=== PATIENT | female | born 1955 | race Caucasian/White ===

== ENCOUNTER 2016-08-12 15:48 | Emergency (ER) | payer MEDICARE, OTHER ==
--- NOTE | ~2016-08-12 | EKG ---
PATIENT: MARCOS MEZA UNIT #: [id number] Ventricular Rate: 101 BPM Atrial Rate: 101 BPM P-R Interval: 122 ms QRS Duration: 80 ms Q-T Interval: 340 ms QTC Calculation(Bezet): 440 ms P [place]: 43 degrees Calculated R [place]: 82 degrees Calculated T [place]: 57 degrees Diagnosis Line: Sinus tachycardia Diagnosis Line: Otherwise normal ECG Diagnosis Line: When compared with ECG of 28-FEB-2011 17:55, Diagnosis Line: No significant change was found Diagnosis Line: Confirmed by MILIND DELANEY MD ([id number]) on Diagnosis Line: 09/24/2016 7:02:09 AM INTERPRETING MASTER HANKINS
--- NOTE | ~2016-08-12 | CR63 ---
[facility] A Service of [facility] RADIOLOGY TEXT RESULTS PATIENT: MARCOS MEZA LOCATION: SED : 55 UNIT #: [id number] AGE: [address]: Kassi Brannon APRN SEX: F ORDER DR: [id number] [address] [address] [id number] E MR#: [id number] Acc #: [id number] NAME: MARCOS MEZA : 1955 SEX: F STUDY DATE/TIME: 08/12/2016 16:34 UNIT: SED ROOM: STUDY DESCRIPTION: CR Chest 2 View Attending Physician: Kassi Brannon A.P.R.N. Ordering Physician: Kassi Brannon A.P.R.N. Primary Care Physician: Shannan Nava M.D. MEDICAL IMAGING REPORT This report is preliminary unless electronic signature is present. EXAM PA and lateral chest INDICATIONS Cough, congestion for 1 week. COMPARISON 06/21/2013 FINDINGS A PA and lateral view of the chest were obtained. There appear to be lingular and right middle lobe infiltrates which are new from the prior study. The rest of the lungs are clear. The heart size is normal and the bones are normal. IMPRESSION There are bilateral infiltrates in the lingula and right middle lobe which are new from the old study and consistent with pneumonia. Dictated by... Bryan Wild M.D. THIS IS AN ELECTRONICALLY VERIFIED REPORT Bryan Wild M.D. at 08/13/2016 6:04 AM HAYES/wilber TD: 08/12/2016 23:42 JOB #: [id number] MEDICAL IMAGING REPORT
[~2016-08-12 15:48] MED LIST: ACETAMINOPHEN P1 TA5 PO; ADVAIR 250-501 EACH; ADVAIR 250-501 EACH INH; ALAVERT10 MG; AMITIZA24 MCG PO; AMOXICILLIN PO; ANEXSIA 5/325 M1 TA1 PO; ANTIBIOTIC; BACTRIM DS TABL1 TA1 PO; BACTRIM DS TABL1 TA2; BACTRIM DS TABL1 TA2 PO; BACTROBAN15 GM; BENADRYL PO; BENADRYL25 MG PO; BENTYL10 MG; CARAFATE PO; CIPROFLOXACIN500 M1 PO; CLARITIN10 MG PO; CLEOCIN HCL300 M1 PO; CLEOCIN150 M1 PO; CLEOCIN150 MG PO; COLACE PO; DIAZEPAM PO; DICYCLOMINE HCL20 MG PO; FLAGYL PO; FLAGYL250 M1 PO; FLEXERIL PO; IBUPROFEN PO; KEFLEX500 MG PO; LAMISIL250 MG PO; LAXATIVE; LINZESS145 MCG; LODINE XL PO; LOMOTIL TABLET1 TAB PO; LORTAB 10-5001 EACH PO; MACROBID 100 M100 MG PO; MACROBID100 M1; MEDROL PO; METRONIDAZ500 MG/101 PO; MUSCLE RELAXER; NAPROXEN PO; NORCO 5/325 TAB1 TAB PO; OTC ACID REFLUX MED; OYSTER CALCIUM500 MG PO; PERCOCET 51 UDTAB 5/ PO; PHENERGAN12.5 MG PO; PHENERGAN25 MG PO; PRAVACHOL PO; PREDNISONE PO; PRILOSEC PO; PRILOSEC20 M1 PO; PRILOSEC40 MG; PYRIDIUM PO; STOMACH PILL; TRAMADOL HCL50 M1 PO; TRAMADOL HCL50 M2 PO; ULTRAM PO; VISTARIL; VOLTAREN50 MG PO; VOLTAREN75 MG PO; [UNRECOGNIZED DRUG - REMARK] PO
[2016-08-12 16:03] LABS: INFLUENZA A NEG (NEG); INFLUENZA B NEG (NEG)
[2016-08-12 16:19] LABS: BASOPHIL% 0.3 % (0-2.5); EOSINOPHIL# 0.1 X10e3 (0-0.7); EOSINOPHIL% 0.8 % (0.0-7.0); HEMATOCRIT 37.4 % (35.0-45.0); HEMOGLOBIN 12.7 gm/dL (12.0-16.0); LYMPHOCYTE# 0.9 X10e3 (1.0-3.5); LYMPHOCYTE% 8.9 % (17.0-45.0); MEAN CELL VOLUME 95.6 FL (83-96); MEAN CORPUSCULAR HEMOGLOBIN 32.3 PG (28-34); MEAN CORPUSCULAR HGB CONC 33.8 g/dL (30-36); MEAN PLATELET VOLUME 8.2 FL (6.5-11.5); MONOCYTE# 0.6 X10e3 (0-1.0); MONOCYTE% 6.2 % (3.0-12.0); NEUTROPHIL# 8.5 X10e3 (1.5-7.1); NEUTROPHIL% 83.8 % (40-75); PLATELET COUNT 286 X10e3 (140-420); RED BLOOD COUNT 3.92 X10e (3.90-5.30); WHITE BLOOD COUNT 10.1 X10e3 (4.0-10.5)
[2016-08-12 16:28] LABS: DIFF IND NO
[2016-08-12 16:35] LABS: POC - MYOGLOBIN 79.3 ng/mL (0.0-169.0); POC - TROPONIN <0.05 ng/mL (<=0.05)
[2016-08-12 16:39] LABS: BLOOD UREA NITROGEN 11 mg/dL (9-23); CALCIUM SERUM 9.9 mg/dL (8.4-10.2); CARBON DIOXIDE 31 mmol/L (22-31); CHLORIDE 97 mmol/L (100-111); CREATININE SERUM 0.5 mg/dL (0.6-1.4); GLOM FILT RATE Estimated ABOVE60 mL/min (>60); GLUCOSE FASTING 104 mg/dL (70-110); POTASSIUM 3.3 mmol/L (3.5-5.1); SODIUM 138 mmol/L (135-145)
[2016-08-12] MEDS ORDERED: ZITHROMAX1 G/PKT PO (18:02)
[2016-08-12] MEDS ORDERED: BENZONATATE PO (18:03)
[2016-08-12] MEDS ORDERED: DELTASONE20 MG PO (18:04)
[2016-10-21] MEDS ORDERED: NEXIUM (15:30)
[2016-10-21] MEDS ORDERED: FLEXERIL10 MG (15:30)
[2016-10-21] MEDS ORDERED: TRAMADOL HCL50 M2 PO (22:03)
== END 2016-08-12 18:04 | disposition home or self-care (01) ==
LOC: SED 15:48
PROVIDERS: Nurse Practitioner
DX: J18.9 Pneumonia, unspecified organism (principal); E11.9 Type 2 diabetes mellitus without complications; J44.9 Chronic obstructive pulmonary disease, unspecified; F17.210 Nicotine dependence, cigarettes, uncomplicated; Z88.0 Allergy status to penicillin
CPT/HCPCS: 36415; 71020; 80048; 82553; 82947; 83874; 83880; 84484; 85025; 87651; 87804; 93005; 94640; 96361; 96365; 99284; J0696

== ENCOUNTER 2016-10-15 14:56 | Emergency (ER) | payer MEDICARE, OTHER ==
--- NOTE | ~2016-10-15 | CR4 ---
[facility] A Service of [facility] RADIOLOGY TEXT RESULTS PATIENT: MARCOS MEZA LOCATION: SED : 55 UNIT #: [id number] AGE: [address]: Georgina Shahid MD SEX: F ORDER DR: [id number] [address] [address] [id number] E MR#: [id number] Acc #: [id number] NAME: MARCOS MEZA : 1955 SEX: F STUDY DATE/TIME: 10/15/2016 15:51 UNIT: SED ROOM: STUDY DESCRIPTION: CR Abdomen Flat Upright or Dec Attending Physician: Georgina Shahid M.D. Ordering Physician: Georgina Shahid M.D. Primary Care Physician: Shannan Nava M.D. MEDICAL IMAGING REPORT This report is preliminary unless electronic signature is present. EXAM Flat and upright abdomen. HISTORY Abdominal pain and constipation. Symptoms have been present for the past 4 days. TECHNIQUE Flat and upright views of the abdomen were obtained. FINDINGS Lumbar scoliosis is noted convex to the right. There is moderately increased stool in the rectosigmoid. The small bowel pattern is normal. No free air is seen on the upright view. No suspicious calcifications or masses. IMPRESSION Increased stool in the rectosigmoid. Otherwise, negative. STAT * RESULT Dictated by... Gordy Iqbal M.D. THIS IS AN ELECTRONICALLY VERIFIED REPORT Gordy Iqbal M.D. at 10/15/2016 6:47 PM JOSLYN/zay TD: 10/15/2016 16:22 JOB #: [id number] [facility] A Service of [facility] RADIOLOGY TEXT RESULTS PATIENT: MARCOS MEZA LOCATION: SED : 55 UNIT #: [id number] AGE: [address]: Georgina Shahid MD SEX: F ORDER DR: MEDICAL IMAGING REPORT Page 1 of 1
[~2016-10-15 14:56] MED LIST changes: +BENZONATATE PO; +DELTASONE20 MG PO; +ZITHROMAX1 G/PKT PO
[2016-10-15] MEDS ORDERED: MIRAPEX (15:18)
[2016-10-15 16:00] LABS: URINE SOURCE CLEAN CATCH
[2016-10-15 16:02] LABS: URINE APPEARANCE CLEAR; URINE BILIRUBIN NEG (NEG); URINE BLOOD 2+ (NEG); URINE COLOR YELLOW; URINE GLUCOSE NEG (NORM); URINE KETONE NEG (NEG); URINE LEUKOCYTE ESTERASE NEG (NEG); URINE NITRATE NEG (NEG); URINE PH 5.5 (5-8); URINE PROTEIN TRACE (NEG); URINE SPECIFIC GRAVITY 1.025 (1.003-1.035); URINE UROBILINOGEN 0.2 MG/DL (NORM)
[2016-10-15 16:10] LABS: MICRO INDICATED? YES
[2016-10-15 16:25] LABS: CULTURE INDICATED? NO; URINE BACTERIA NEG (NEG); URINE WBC 0-2 /[HPF] (0-5)
[2016-10-21] MEDS ORDERED: NEXIUM (15:30)
[2016-10-21] MEDS ORDERED: FLEXERIL10 MG (15:30)
[2016-10-21] MEDS ORDERED: TRAMADOL HCL50 M2 PO (22:03)
== END 2016-10-15 17:41 | disposition home or self-care (01) ==
LOC: SED 14:56
PROVIDERS: Student in an Organized Health Care Education/Training Program
DX: K59.00 Constipation, unspecified (principal); Z90.710 Acquired absence of both cervix and uterus; Z88.0 Allergy status to penicillin; Z88.1 Allergy status to other antibiotic agents; Z88.5 Allergy status to narcotic agent
CPT/HCPCS: 74020; 81003; 99283

== ENCOUNTER → 2016-10-21 | Outpatient (CLI) | payer MEDICARE, OTHER ==
[~2016-10-21] MED LIST changes: +FLEXERIL10 MG; +MIRAPEX; +NEXIUM
[2016-10-21 12:14] LABS: CALCIUM SERUM 9.3 mg/dL (8.4-10.2); CREATININE SERUM 0.6 mg/dL (0.6-1.4); GLOM FILT RATE Estimated 98.4 mL/min (>60)
== END | disposition home or self-care (01) ==
LOC: CSSDAY 10-14 07:15
PROVIDERS: Nurse Practitioner
DX: M81.0 Age-related osteoporosis without current pathological fracture (principal); Z79.899 Other long term (current) drug therapy
CPT/HCPCS: 36415; 82310; 82565; 96374; J3489

== ENCOUNTER → 2016-11-04 | Day surgery (SDC) | payer MEDICARE, OTHER ==
--- NOTE | ~2016-11-04 | OR ---
Unit #: [id number] #: [id number] Patient: MARCOS MEZA [id number] [address] [address] [id number] O MR#: [id number] NAME: MARCOS MEZA ROOM: Date of Procedure: 11/04/2016 Admission Date: 11/04/2016 Surgeon: Eusebio Noble M.D. : 1955 Attending Physician: Eusebio Noble M.D. Primary Care Physician: Shannan Nava M.D. OPERATIVE REPORT PROCEDURES PERFORMED Esophagogastroduodenoscopy with biopsy and colonoscopy to cecum. INDICATIONS FOR PROCEDURE A 61-year-old female with dysphagia, history of GERD, undergoing evaluation with upper endoscopy; also with history of polyps, undergoing colonoscopy for surveillance. MEDICATIONS Monitored anesthesia. POSTOPERATIVE FINDINGS 1. Small hiatal hernia. No strictures, rings, or esophagitis. 2. Mild gastritis. Biopsy was taken. 3. Normal duodenum and distal duodenum. 4. Colonoscopy completed to cecum. Prep was good. 5. No polyps, masses, or colitis. 6. Internal hemorrhoids. PLAN 1. Repeat colonoscopy in 5 years. 2. Continue PPI therapy and reflux precautions. DESCRIPTION OF PROCEDURE The patient was explained of the procedure, risks, and benefits along with the risks and benefits of anesthesia. She was brought to the endoscopy room. Propofol anesthesia was given. Bite block was placed. The scope was passed down the mouth into the esophagus, stomach, duodenum, and distal duodenum. Findings as described. Biopsy was taken. Gently, I pulled the scope out of the patient's mouth. She was turned around and repositioned for colonoscopy. Rectal exam was done, which was normal. Colonoscope was lubricated, passed up the rectum, advanced under direct vision all the way to the cecum. Cecum was identified by ileocecal valve and appendiceal orifice. I then started to pull the scope out carefully looking. No polyps, masses, or colitis were seen. I retroflexed in the rectum. Internal hemorrhoids noted. Gently, the scope was pulled out. She tolerated it well. No major complications were seen. Dictated by... Unit #: [id number] #: [id number] Patient: MARCOS MEZA Eusebio Noble M.D. SKJ/darius TD: 11/04/2016 18:14 JOB #: [id number] CC: Shannan Nava M.D. OPERATIVE REPORT Page 1 of 1 X Eusebio Noble MD X PROCEDURE OPERATIVE NOTE
== END | disposition home or self-care (01) ==
LOC: COPS 09-23 11:00
DX: Z12.11 Encounter for screening for malignant neoplasm of colon (principal); K44.9 Diaphragmatic hernia without obstruction or gangrene; K64.8 Other hemorrhoids; J45.909 Unspecified asthma, uncomplicated; J43.9 Emphysema, unspecified; K21.9 Gastro-esophageal reflux disease without esophagitis; F17.210 Nicotine dependence, cigarettes, uncomplicated; Z85.828 Personal history of other malignant neoplasm of skin; Z90.710 Acquired absence of both cervix and uterus; Z87.19 Personal history of other diseases of the digestive system; Z88.0 Allergy status to penicillin; Z88.6 Allergy status to analgesic agent; Z86.010 Personal history of colon polyps; Z87.440 Personal history of urinary (tract) infections; Z86.14 Personal history of Methicillin resistant Staphylococcus aureus infection; Z79.899 Other long term (current) drug therapy
CPT/HCPCS: 43239; G0105; 82947; 88305; 88312; J2250

== ENCOUNTER → 2016-12-16 | Outpatient (CLI) | payer MEDICARE, OTHER ==
--- NOTE | ~2016-12-16 | MY29 ---
[facility] A Service of [facility] RADIOLOGY TEXT RESULTS PATIENT: MARCOS MEZA LOCATION: [facility] : 55 UNIT #: [id number] AGE: [address]: Shannan Nava MD SEX: F ORDER DR: [id number] [facility] [address] [facility]. [place], [place] [address] [id number] O MR#: [id number] Acc #: [id number] NAME: MARCOS MEZA : 1955 SEX: F STUDY DATE/TIME: 12/16/2016 12:28 UNIT: [facility] ROOM: STUDY DESCRIPTION: MY [facility] SCREENING W/ CAD BILAT Attending Physician: Shannan Nava M.D. Referring Physician: Shannan Nava M.D. Ordering Physician: Shannan Nava M.D. Primary Care Physician: Shannan Nava M.D. MEDICAL IMAGING REPORT This report is preliminary unless electronic signature is present EXAM Bilateral digital screening mammogram with CAD 12/16/2016 INDICATIONS 61-year-old female for routine screening. No reported problems. No family history of breast cancer. Patient has indicated a personal history of breast cancer on the left but denies prior surgery. TECHNIQUE CC and MLO views of the breasts were obtained and reviewed with an FDA-approved CAD device COMPARISON 06/11/2009 08/10/2007 07/25/2007 FINDINGS Breast parenchyma is heterogeneously dense. This degrades sensitivity of screening mammography. The pattern is unchanged. There is no new dominant nodule mass or suspicious cluster of microcalcifications. Prominent breast tissue in the upper hemisphere left breast on the MLO projection is unchanged dating back to 2007 and therefore benign. IMPRESSION 1. Benign dense mammogram 1 year followup is recommended. Patients over the age of 40 are entered into a reminder system with target due date for the next mammogram. A result letter will also be sent to the patient. BIRADS: 2, benign findings Dictated by... [facility] A Service [facility] RADIOLOGY TEXT RESULTS PATIENT: MARCOS MEZA LOCATION: [facility] : 55 UNIT #: [id number] AGE: [address]: Shannan Nava MD SEX: F ORDER DR: Andi Mathias M.D. THIS IS AN ELECTRONICALLY VERIFIED REPORT Andi Mathias M.D. at 12/16/2016 5:11 PM DINESH/kae TD: 12/16/2016 13:07 JOB #: [id number] MEDICAL IMAGING REPORT Page 1 of 1 COPY
== END | disposition home or self-care (01) ==
LOC: CWCC 12:00
DX: Z12.31 Encounter for screening mammogram for malignant neoplasm of breast (principal); Z85.3 Personal history of malignant neoplasm of breast
CPT/HCPCS: G0202